=== PATIENT | male | born 1960 | race Two or more races ===

== ENCOUNTER 2022-11-13 14:05 | Inpatient (IN) | payer OTHER ==
[~2022-11-13] VITALS: Ht 172.7 cm; Wt 78.2 kg
[2022-11-13] MEDS ORDERED: dilTIAZem 25 MG/5 ML VIAL IV ONE (14:30)
[2022-11-13] MEDS ORDERED: dilTIAZem 125mg/125ml BAG KIT 100 ML IV ONE (14:30)
[2022-11-13 14:52] LABS: Hematocrit 25.8 % (41.0-53.0); Hemoglobin 8.8 g/dL (13.5-17.5); Mean Corpuscular Hemoglobin 29.9 pg (28.0-32.0); Mean Corpuscular Hgb Conc. 33.9 g/dL (32.0-36.0); Mean Corpuscular Volume 88.1 fL (80.0-100.0); Red Blood Cells 2.93 10^6/uL (4.5-5.90); Red Cell Distribution Width 17.3 % (11.8-14.3); White Blood Cell 9.9 10^3/uL (4.4-10.8)
[2022-11-13 14:57] LABS: Basophils % (manual) 0 (0.0-2.0); Blast Cells 0; Eosinophils % (manual) 0 (0-7); Metamyelocytes % 0; Myelocytes % 0; Promyelocytes % 0; Reactive Lymphocytes 0
[2022-11-13 15:11] LABS: Band Neutrophils % (manual) 26; Lymphocytes % (manual) 5 (10.0-50.0); Monocytes % (manual) 4 (0-12)
[2022-11-13 15:13] LABS: INR 1.22 (0.9-1.15); Partial Thromboplastin Time 32.7 sec (24.6-33.4)
[2022-11-13 15:33] LABS: Albumin 2.3 g/dL (3.4-5.0); Calcium 7.8 mg/dL (8.5-10.1); Magnesium 2.6 mg/dL (1.6-2.6); Potassium 4.2 mmol/L (3.5-5.1)
[2022-11-13 15:37] LABS: BUN/Creatinine Ratio 24.3; Bilirubin, Total 2.3 mg/dL (0.2-1.0); Total Protein 6.3 g/dL (6.4-8.2)
[2022-11-13] MEDS ORDERED: AMIODARONE HCL (50 MG/ ML) 3 ML VIAL IV ONE ×2 (15:40→18:34)
[2022-11-13] MEDS ORDERED: AMIODARONE HCL 150 MG in D5W 5% 100 ML IV ONE ×2 (15:45→18:15)
[2022-11-13] MEDS ORDERED: AMIODARONE 450mg/250ml AE 250 ML IV SCH (16:00)
[2022-11-13] MEDS ORDERED: MORPHINE SULFATE INJ 2 MG/ml SYRG IV PRN (18:15)
[2022-11-13] MEDS ORDERED: DOCUSATE SOD 100 MG CAP PO PRN (18:15)
[2022-11-13] MEDS ORDERED: ONDANSETRON HCL 4 MG/2 ML VIAL IV PRN (18:15)
[2022-11-13] MEDS ORDERED: NITROGLYCERIN 0.4 MG SL TAB SL PRN (18:15)
[2022-11-13] MEDS ORDERED: ENOXAPARIN SOD 40 MG/0.4 ML SYRINGE SC SCH (18:45)
[2022-11-13] MEDS: SODIUM CHLORIDE 0.9% 1,000 ML IV SCH (18:48)
[2022-11-13] MEDS: NOREPINEPHRINE 8 MG/250ML KIT 250 ML IV SCH (19:24)
[2022-11-13] MEDS ORDERED: DEXTROSE (50%) 50ML SYRG IV PRN (19:45)
[2022-11-13] MEDS: PANTOPRAZOLE 40 MG/10 ML VIAL INJ IV SCH (20:45)
[2022-11-13] MEDS: ACCU-CHEK COMFORT CURVE STRIP VI SCH (21:46)
[2022-11-13] MEDS: InsuLIN REG 1unit/0.01ml Soln (100units/ml) SC SCH (21:47)
[2022-11-13] MEDS: AMIODARONE 450mg/250ml AE 250 ML IV SCH (22:30)
[2022-11-13] MEDS ORDERED: INSULIN LANTUS (GLARGINE) 1 /0.01ml (100units/ml) SC ONE (23:45)
[2022-11-14] VITALS (16 sets, daily range): BP systolic 76–125; BP diastolic 43–62
[2022-11-14] MEDS: ACETAMINOPHEN 325 MG RECT SUPP PR ONE ×2 (01:37→01:42)
[2022-11-14] MEDS ORDERED: ACETAMINOPHEN 650 MG RECT SUPP PR ONE (01:45)
[2022-11-14 02:01] LABS: Urine Bacteria MANY /hpf (None Seen); Urine Blood 3+ /uL (Negative); Urine WBC 110 /hpf (0 - 3); Urine WBC Clumps PRESENT /hpf (None Seen)
[2022-11-14] MEDS ORDERED: ACETAMINOPHEN IV 1000 MG/100ML (10MG/ML) IV PRN (04:15)
[2022-11-14] MEDS ORDERED: ACETAMINOPHEN 650 MG RECT SUPP PR PRN (04:15)
[2022-11-14] MEDS: SODIUM CHLORIDE 0.9% 1,000 ML IV SCH ×2 (05:04→15:15)
[2022-11-14 06:18] LABS: Albumin 2.1 g/dL (3.4-5.0); Calcium 7.8 mg/dL (8.5-10.1); Potassium 3.1 mmol/L (3.5-5.1)
[2022-11-14 06:19] LABS: Lactic Acid w/Reflex 4.6 mmol/L (0.4-2.0)
[2022-11-14 06:20] LABS: BUN/Creatinine Ratio 24.7
[2022-11-14 06:23] LABS: Bilirubin, Total 2.3 mg/dL (0.2-1.0); Total Protein 6.7 g/dL (6.4-8.2)
[2022-11-14 06:30] LABS: Hematocrit 25.4 % (41.0-53.0); Hemoglobin 8.6 g/dL (13.5-17.5); Mean Corpuscular Hemoglobin 29.3 pg (28.0-32.0); Mean Corpuscular Hgb Conc. 33.9 g/dL (32.0-36.0); Mean Corpuscular Volume 86.6 fL (80.0-100.0); Red Blood Cells 2.94 10^6/uL (4.5-5.90); White Blood Cell 16.6 10^3/uL (4.4-10.8)
[2022-11-14] MEDS: ACCU-CHEK COMFORT CURVE STRIP VI SCH ×4 (06:49→22:40)
[2022-11-14] MEDS: InsuLIN REG 1unit/0.01ml Soln (100units/ml) SC SCH ×4 (06:50→22:40)
[2022-11-14 09:04] LABS: Basophils % (manual) 0 (0.0-2.0); Blast Cells 0; Eosinophils % (manual) 0 (0-7); Metamyelocytes % 0; Monocytes % (manual) 0 (0-12); Myelocytes % 0; Promyelocytes % 0; Reactive Lymphocytes 0
[2022-11-14 09:05] LABS: Band Neutrophils % (manual) 37; Lymphocytes % (manual) 2 (10.0-50.0)
[2022-11-14] MEDS: NOREPINEPHRINE 8 MG/250ML KIT 250 ML IV SCH (10:37)
[2022-11-14] MEDS: INSULIN LANTUS (GLARGINE) 1 /0.01ml (100units/ml) SC SCH (10:53)
[2022-11-14] MEDS: PANTOPRAZOLE 40 MG/10 ML VIAL INJ IV SCH (10:55)
[2022-11-14] MEDS: AMIODARONE 450mg/250ml AE 250 ML IV SCH (12:46)
[2022-11-14] MEDS: MIDODRINE HCL 10 MG TAB PO SCH ×2 (12:46→12:49)
[2022-11-14] MEDS: POTASSIUM CHL 20MEQ/100ML 100 ML IV SCH ×3 (13:39→17:48)
[2022-11-14] MEDS ORDERED: cefTRIAXone 1GM/50ML D5W 50 ML IV SCH (14:30)
[2022-11-14] MEDS: ACETAMINOPHEN 325 MG TAB PO PRN (15:12)
[2022-11-14] MEDS ORDERED: SODIUM CHLORIDE 0.9% 1,000 ML IV SCH (15:30)
[2022-11-14 15:52] LABS: Calcium 7.1 mg/dL (8.5-10.1); Potassium 3.6 mmol/L (3.5-5.1)
[2022-11-14 15:55] LABS: Albumin 1.9 g/dL (3.4-5.0)
[2022-11-14 15:58] LABS: Bilirubin, Total 2.2 mg/dL (0.2-1.0)
[2022-11-14 18:20] LABS: Alcohol, Urine < 3.0 mg/dL (0-10); Amphetamine Screen, Urine NEGATIVE (NEGATIVE); Barbiturate Scree,Urine NEGATIVE (NEGATIVE); Benzodiazephine Screen, Urine NEGATIVE (NEGATIVE); Cannabinoid Screen, Urine NEGATIVE (NEGATIVE); Cocaine Screen, Urine NEGATIVE (NEGATIVE); Opiate Scree,Urine NEGATIVE (NEGATIVE); Phencyclidine Screen, Urine NEGATIVE (NEGATIVE)
[2022-11-14] MEDS ORDERED: SODIUM BICARBONATE 8.4 % INJ 50ML VIAL IV ONE (18:59)
[2022-11-14] MEDS: SODIUM BICARBONATE 50ML VIAL 50 ML in SOD CHL 0.45% 1,000 ML IV SCH (19:21)
[2022-11-14] MEDS ORDERED: LORazepam 2MG/ML-1ML VIAL IV PRN (19:45)
[2022-11-14 21:03] LABS: Cholesterol < 50 mg/dL (< 200); Triglycerides 94 mg/dL (< 150)
[2022-11-14 21:05] LABS: HDL Cholesterol 9 mg/dL (40-59); LDL Cholesterol 16 mg/dL (< 100)
[2022-11-14] MEDS ORDERED: CLINDAMYCIN 600MG IV 50 ML IV SCH (22:00)
[2022-11-14] MEDS ORDERED: LINEZOLID 600MG/300ML 300 ML IV SCH (22:00)
[2022-11-14] MEDS: AMIODARONE HCL 200 MG TAB PO SCH (22:40)
[2022-11-14] MEDS: ATORVASTATIN 20 MG TAB PO SCH (22:40)
[2022-11-15] VITALS (77 sets, daily range): BP systolic 76–125; BP diastolic 42–59
[2022-11-15] MEDS: SODIUM BICARBONATE 50ML VIAL 50 ML in SOD CHL 0.45% 1,000 ML IV SCH (02:54)
[2022-11-15] MEDS ORDERED: SODIUM BICARBONATE 8.4 % INJ 50ML VIAL IV ONE (03:52)
[2022-11-15] MEDS: AMIODARONE 450mg/250ml AE 250 ML IV SCH ×2 (04:00→19:00)
[2022-11-15] MEDS: ACETAMINOPHEN 325 MG TAB PO PRN (05:11)
[2022-11-15 05:40] LABS: Hemoglobin 7.9 g/dL (13.5-17.5); Red Blood Cells 2.63 10^6/uL (4.5-5.90)
[2022-11-15 05:41] LABS: Potassium 3.6 mmol/L (3.5-5.1)
[2022-11-15 05:42] LABS: Hematocrit 22.6 % (41.0-53.0); Mean Corpuscular Hemoglobin 30.2 pg (28.0-32.0); Mean Corpuscular Hgb Conc. 35.1 g/dL (32.0-36.0); Mean Corpuscular Volume 85.9 fL (80.0-100.0); Red Cell Distribution Width 18.1 % (11.8-14.3); White Blood Cell 8.7 10^3/uL (4.4-10.8)
[2022-11-15 05:48] LABS: Albumin 1.7 g/dL (3.4-5.0); BUN/Creatinine Ratio 32.1; Bilirubin, Total 1.9 mg/dL (0.2-1.0); Calcium 6.8 mg/dL (8.5-10.1); Total Protein 5.5 g/dL (6.4-8.2)
[2022-11-15 05:59] LABS: Basophils % (manual) 0 (0.0-2.0); Blast Cells 0; Metamyelocytes % 0; Myelocytes % 0; Promyelocytes % 0; Reactive Lymphocytes 0
[2022-11-15] MEDS ORDERED: CLINDAMYCIN 300MG IV 100 ML IV SCH (06:00)
[2022-11-15] MEDS: ACCU-CHEK COMFORT CURVE STRIP VI SCH ×4 (06:50→22:15)
[2022-11-15] MEDS: InsuLIN REG 1unit/0.01ml Soln (100units/ml) SC SCH ×4 (06:51→22:14)
[2022-11-15] MEDS ORDERED: CEFTRIAXONE SODIUM 2 GM in D5W 5% 100 ML IV SCH (10:00)
[2022-11-15 11:12] LABS: Band Neutrophils % (manual) 41; Eosinophils % (manual) 1 (0-7); Lymphocytes % (manual) 5 (10.0-50.0); Monocytes % (manual) 3 (0-12)
[2022-11-15] MEDS: PANTOPRAZOLE 40 MG/10 ML VIAL INJ IV SCH (11:54)
[2022-11-15 12:00] LABS: INR 1.24 (0.9-1.15); Partial Thromboplastin Time 36.9 sec (24.6-33.4)
[2022-11-15] MEDS: INSULIN LANTUS (GLARGINE) 1 /0.01ml (100units/ml) SC SCH (12:32)
[2022-11-15] MEDS: HYDROcodone-ACET 5/325MG TAB PO PRN (14:30)
[2022-11-15] MEDS: NOREPINEPHRINE 8 MG/250ML KIT 250 ML IV SCH (15:31)
[2022-11-15] MEDS: ASPirin 81 mg TAB PO SCH (16:43)
[2022-11-15] MEDS: AMIODARONE HCL 200 MG TAB PO SCH ×2 (16:43→21:51)
[2022-11-15] MEDS: ENOXAPARIN SOD 30 MG/0.3 ML SYRINGE SC SCH (16:44)
[2022-11-15] MEDS: CLINDAMYCIN 300MG IV 50 ML IV SCH ×2 (21:52→23:00)
[2022-11-15] MEDS: ATORVASTATIN 20 MG TAB PO SCH (21:53)
[2022-11-16] VITALS (94 sets, daily range): BP systolic 81–129; BP diastolic 38–58
[2022-11-16] MEDS: MEROPENEM 1GM IVPB 100 ML IV SCH ×3 (00:18→22:04)
[2022-11-16] MEDS: NOREPINEPHRINE 8 MG/250ML KIT 250 ML IV SCH ×2 (04:08→20:30)
[2022-11-16] MEDS ORDERED: KETOROLAC TROMETH 30 MG/ML 1ML VIAL IV ONE ×2 (05:45→06:00)
[2022-11-16 05:57] LABS: Albumin 1.6 g/dL (3.4-5.0); Calcium 7.4 mg/dL (8.5-10.1); Potassium 3.2 mmol/L (3.5-5.1)
[2022-11-16 06:02] LABS: BUN/Creatinine Ratio 35.9 (10.0-20.0); Bilirubin, Total 1.6 mg/dL (0.2-1.0); Total Protein 6.5 g/dL (6.4-8.2)
[2022-11-16] MEDS: CLINDAMYCIN 300MG IV 50 ML IV SCH ×6 (06:40→22:50)
[2022-11-16] MEDS: InsuLIN REG 1unit/0.01ml Soln (100units/ml) SC SCH ×4 (06:42→22:00)
[2022-11-16] MEDS: ACCU-CHEK COMFORT CURVE STRIP VI SCH ×4 (06:44→22:04)
[2022-11-16 07:02] LABS: Basophils # (auto) 0 10 ^3/uL (0-0.2); Basophils % (auto) 0.2 % (0.0-2.0); Eosinophils # (auto) 0 10 ^3/uL (0-0.8); Eosinophils % (auto) 0.4 % (0.0-7.0); Hemoglobin 7.8 g/dL (13.5-17.5); Lymphocytes # (auto) 0.5 10 ^3/uL (0.4-5.4); Monocytes # (auto) 0.5 10 ^3/uL (0-1.3)
[2022-11-16 07:03] LABS: Hematocrit 22.5 % (41.0-53.0); Lymphocytes % (auto) 5.6 % (10.0-50.0); Mean Corpuscular Hgb Conc. 34.6 g/dL (32.0-36.0); Mean Corpuscular Volume 86.8 fL (80.0-100.0); Monocytes % (auto) 5.3 % (0.0-12.0); Neutrophils # (auto) 7.5 10 ^3/uL (1.6-8.6); Neutrophils % (auto) 88.5 % (37.0-80.0); Nucleated Red Blood Cells % 0.1 %; Red Blood Cells 2.59 10^6/uL (4.5-5.90); Red Cell Distribution Width 18.3 % (11.8-14.3); White Blood Cell 8.5 10^3/uL (4.4-10.8)
[2022-11-16] MEDS ORDERED: SODIUM CHLORIDE 0.9% 1,000 ML IV SCH (09:45)
[2022-11-16] MEDS: AMIODARONE 450mg/250ml AE 250 ML IV SCH (10:00)
[2022-11-16] MEDS ORDERED: POTASSIUM EFFERVESENT TAB 25 MEQ PO ONE (10:00)
[2022-11-16] MEDS: SODIUM CHLORIDE 0.9% 1,000 ML IV SCH (10:08)
[2022-11-16] MEDS: ASPirin 81 mg TAB PO SCH (10:09)
[2022-11-16] MEDS: ALBUMIN 25% 50 ML IV SCH ×3 (10:09→17:56)
[2022-11-16] MEDS: PANTOPRAZOLE 40 MG/10 ML VIAL INJ IV SCH (10:09)
[2022-11-16] MEDS: ENOXAPARIN SOD 30 MG/0.3 ML SYRINGE SC SCH (10:12)
[2022-11-16] MEDS: MIDODRINE HCL 10 MG TAB PO SCH ×2 (10:12→17:55)
[2022-11-16] MEDS: INSULIN LANTUS (GLARGINE) 1 /0.01ml (100units/ml) SC SCH (10:19)
[2022-11-16] MEDS: Juven Fruit Punch Powder PACKET 28.8gm PO SCH (18:47)
[2022-11-16] MEDS: HYDROcodone-ACET 5/325MG TAB PO PRN (20:05)
[2022-11-16] MEDS: ATORVASTATIN 20 MG TAB PO SCH (21:26)
[2022-11-17] VITALS (96 sets, daily range): BP systolic 94–131; BP diastolic 43–69
[2022-11-17] MEDS: SODIUM CHLORIDE 0.9% 1,000 ML IV SCH ×2 (00:25→13:24)
[2022-11-17] MEDS: AMIODARONE 450mg/250ml AE 250 ML IV SCH ×2 (01:00→16:00)
[2022-11-17] MEDS: ALBUMIN 25% 50 ML IV SCH (01:39)
[2022-11-17] MEDS: HYDROcodone-ACET 5/325MG TAB PO PRN ×3 (03:03→05:02)
[2022-11-17] MEDS: CLINDAMYCIN 300MG IV 50 ML IV SCH ×6 (05:50→22:19)
[2022-11-17] MEDS: MIDODRINE HCL 10 MG TAB PO SCH ×3 (05:50→19:14)
[2022-11-17 05:55] LABS: Basophils # (auto) 0 10 ^3/uL (0-0.2); Eosinophils # (auto) 0 10 ^3/uL (0-0.8); Eosinophils % (auto) 0.6 % (0.0-7.0); Hemoglobin 7.5 g/dL (13.5-17.5); Red Blood Cells 2.49 10^6/uL (4.5-5.90)
[2022-11-17 05:57] LABS: Basophils % (auto) 0.1 % (0.0-2.0); Hematocrit 21.5 % (41.0-53.0); Lymphocytes # (auto) 0.5 10 ^3/uL (0.4-5.4); Lymphocytes % (auto) 7.9 % (10.0-50.0); Mean Corpuscular Hemoglobin 30.3 pg (28.0-32.0); Mean Corpuscular Hgb Conc. 35.1 g/dL (32.0-36.0); Mean Corpuscular Volume 86.3 fL (80.0-100.0); Monocytes # (auto) 0.3 10 ^3/uL (0-1.3); Monocytes % (auto) 4.1 % (0.0-12.0); Neutrophils # (auto) 5.9 10 ^3/uL (1.6-8.6); Neutrophils % (auto) 87.3 % (37.0-80.0); Nucleated Red Blood Cells % 0.2 %; White Blood Cell 6.8 10^3/uL (4.4-10.8)
[2022-11-17 06:07] LABS: Potassium 3.2 mmol/L (3.5-5.1)
[2022-11-17 06:14] LABS: Albumin 1.8 g/dL (3.4-5.0); BUN/Creatinine Ratio 40.5 (10.0-20.0); Bilirubin, Total 1.7 mg/dL (0.2-1.0); Calcium 7.1 mg/dL (8.5-10.1); Total Protein 6.3 g/dL (6.4-8.2)
[2022-11-17] MEDS: InsuLIN REG 1unit/0.01ml Soln (100units/ml) SC SCH ×4 (06:42→21:48)
[2022-11-17] MEDS: ACCU-CHEK COMFORT CURVE STRIP VI SCH ×4 (06:42→21:47)
[2022-11-17] MEDS: Juven Fruit Punch Powder PACKET 28.8gm PO SCH ×2 (08:20→18:17)
[2022-11-17] MEDS ORDERED: POTASSIUM CHL 20MEQ/100ML 100 ML IV SCH (08:30)
[2022-11-17] MEDS ORDERED: POTASSIUM EFFERVESENT TAB 25 MEQ PO ONE (09:30)
[2022-11-17] MEDS ORDERED: Pro-Stat SF 30ml Vanilla PO SCH (10:00)
[2022-11-17] MEDS: NOREPINEPHRINE 8 MG/250ML KIT 250 ML IV SCH (10:05)
[2022-11-17] MEDS: ENOXAPARIN SOD 30 MG/0.3 ML SYRINGE SC SCH (11:38)
[2022-11-17] MEDS: PANTOPRAZOLE 40 MG/10 ML VIAL INJ IV SCH (11:39)
[2022-11-17] MEDS: ASPirin 81 mg TAB PO SCH (11:39)
[2022-11-17] MEDS: MEROPENEM 1GM IVPB 100 ML IV SCH ×2 (11:39→21:16)
[2022-11-17] MEDS: INSULIN LANTUS (GLARGINE) 1 /0.01ml (100units/ml) SC SCH (11:52)
[2022-11-17] MEDS: ATORVASTATIN 20 MG TAB PO SCH (21:15)
[2022-11-18] VITALS (38 sets, daily range): BP systolic 85–124; BP diastolic 40–61
[2022-11-18] MEDS: HYDROcodone-ACET 5/325MG TAB PO PRN (02:26)
[2022-11-18] MEDS: SODIUM CHLORIDE 0.9% 1,000 ML IV SCH (05:16)
[2022-11-18] MEDS: CLINDAMYCIN 300MG IV 50 ML IV SCH ×2 (05:32→06:29)
[2022-11-18] MEDS: MIDODRINE HCL 10 MG TAB PO SCH (05:32)
[2022-11-18] MEDS: InsuLIN REG 1unit/0.01ml Soln (100units/ml) SC SCH (05:33)
[2022-11-18] MEDS: ACCU-CHEK COMFORT CURVE STRIP VI SCH (05:33)
[2022-11-18] MEDS: AMIODARONE 450mg/250ml AE 250 ML IV SCH (07:00)
[2022-11-18] MEDS: Juven Fruit Punch Powder PACKET 28.8gm PO SCH (10:09)
== END 2022-11-18 09:25 | disposition hospice, home (50) | DRG 720 ==
LOC: EDBD 14:05 → ER 14:05 → TELE 18:24 → ICU CENTRL 11-14 23:45
PROVIDERS: ADMIT Nurse Practitioner Family; ATTEND Nurse Practitioner Acute Care
DX: A41.9 Sepsis, unspecified organism (principal); N17.0 Acute kidney failure with tubular necrosis; R65.21 Severe sepsis with septic shock; G93.41 Metabolic encephalopathy; E43 Unspecified severe protein-calorie malnutrition; A48.0 Gas gangrene; E11.52 Type 2 diabetes mellitus with diabetic peripheral angiopathy with gangrene; I48.91 Unspecified atrial fibrillation; D64.9 Anemia, unspecified; E11.65 Type 2 diabetes mellitus with hyperglycemia; I21.A1 Myocardial infarction type 2; K74.60 Unspecified cirrhosis of liver; Z66 Do not resuscitate; L03.115 Cellulitis of right lower limb; I11.0 Hypertensive heart disease with heart failure; N48.29 Other inflammatory disorders of penis; M86.8X7 Other osteomyelitis, ankle and foot; N39.0 Urinary tract infection, site not specified; R62.7 Adult failure to thrive; E11.69 Type 2 diabetes mellitus with other specified complication; I50.9 Heart failure, unspecified; M00.9 Pyogenic arthritis, unspecified; R32 Unspecified urinary incontinence; Z68.23 Body mass index [BMI] 23.0-23.9, adult; Z51.5 Encounter for palliative care; Z83.3 Family history of diabetes mellitus; Z91.199 Patient's noncompliance with other medical treatment and regimen due to unspecified reason
CPT/HCPCS: 36415; 36600; 70450; 71045; 71250; 73700; 74176; 76705; 80053; 80061; 80307; 81001; 82010; 82140; 82607; 82746; 82805; 82962; 83036; 83520; 83605; 83735; 83880; 84443; 84484; 85007; 85025; 85027; 85379; 85610; 85652; 85730; 86038; 86141; 86256; 87040; 87077; 87081; 87086; 87186; 93005; 93306; 93886; 93925; 95819; 96365; 96366; 96367; 96376; 99291; C9113; G0378; J0131; J0696; J1815; J1885; J2185; J3480; J3490; J7060